=== PATIENT | female | born 1950 | race Caucasian/White ===

== ENCOUNTER 2017-03-23 15:39 | Inpatient (IN) | payer MEDICAID, MEDICARE ==
[~2017-03-23] VITALS: Ht 160 cm; Wt 73.5 kg
[2017-03-23 13:50] VITALS: BP 146/87
[2017-03-23] MEDS ORDERED: MAGNESIUM HYDROXIDE 30 ML UDC PO PRN (16:30)
[2017-03-23] MEDS ORDERED: ACETAMINOPHEN 325 MG TABLET PO PRN (16:30)
--- NOTE | 2017-03-23 16:35 | NUR ---
GPS RN ADMITTING NOTE: PT 66 Y/O FEMALE FROM [facility] PLACED ON 5150 FOR DANGER TO SELF PER HOLD PT ADMITTED [facility] FOR EVAL ON VOLUNTARY STATE FOR SYMPTOMS OF SCHIZOAFFECTIVE BIPOLAR TYPE. PT REFUSING MEDICATIONS INCLUDING BLOOD SUGAR CHECKS AND BP PT HAS UNREALISTIC PARANOID BELIEFS. PER F/F ASSESSMENT PT DELUSIONAL A/OX 3 WITH FORGETFULNESS, ANXIOUS HAS TWO RESENT FALLS NOTED MULTIPLE BRUISES AND LEFT HEAD LACERATION WITH STITCHES PLACED, PATIENT DENIES SUICIDAL AND HOMICIDAL IDEATION DENIES PAIN AT THIS TIME ,DR NULL NOTIFIED WITH ORDERS WILL INDORSE TO INCOMING NURSE FOR COMPLETION AND CONTINUATION OF ADMISSION
[2017-03-23] MEDS ORDERED: LORA1TAB PO (17:19)
[2017-03-23] MEDS ORDERED: OLAN20TA3 PO (17:19)
[2017-03-23] MEDS ORDERED: IBUP-1481 PO (17:19)
[2017-03-23] MEDS ORDERED: NAPR250T2 PO (17:19)
[2017-03-23] MEDS ORDERED: ACET325T53 PO (17:19)
[2017-03-23] MEDS ORDERED: GLIM2TAB2 PO (17:19)
[2017-03-23] MEDS ORDERED: NICO1PAT44 TD (17:19)
[2017-03-23] MEDS ORDERED: NICO2GUM9 BC (17:19)
[2017-03-23] MEDS ORDERED: INSU100I4 SQ (17:19)
[2017-03-23] MEDS ORDERED: MAG30ORA PO (17:19)
[2017-03-23] MEDS ORDERED: HYDR-3026 PO (17:19)
[2017-03-23] MEDS ORDERED: FLUV50TA3 PO (17:19)
[2017-03-23] MEDS ORDERED: INSU100V10 SQ (17:19)
--- NOTE | 2017-03-23 18:15 | NUR ---
GPS RN NOTE: DR CASTANEDA NOTIFIED OF NEW ADMISSION TO [facility] MEDICATION PT HAS HX DM AND RESENT FALL WITH LACERATION ON THE LEFT SIDE HEAD WITH STITCHES NEED TO BE REMOVED ON MARCH 26 WILL CONTINUE MONITORING FOR SAFETY AND BEHAVIOR Q 15 MIN
--- NOTE | 2017-03-23 18:43 | NUR ---
GPS RN NOTE: PAT HAD RESENT FALL 1:1 SITTER ORDER FOR SAFETY
--- NOTE | 2017-03-23 19:30 | NUR ---
GPS RN NOTE, RECEIVED PATIENT AWAKE AND IN BED, NO S/S OR COMPLAINTS OF PAIN AT THIS TIME. PATIENT IS DISPLAYING NO S/S OF APPARENT DISTRESS AT THIS TIME. PATIENT BREATHING IS UNLABORED WITH EQUAL RISE AND FALL OF THE CHEST. PATIENT HAS A 1TO 1 SITTER FOR FALLING AT HER ORIGINAL FACILITY. PATIENT IS ALERT AND ORIENTED X 1 ON ROOM AIR WITH A SPO2 98%. PATIENT COMPLIANT WITH MEDICATIONS, DEPRESSED, COOPERATIVE, CALM, CONFUSED AT TIMES, AND NEEDS REORIENTATION. PATIENT DENIES SUICIDE AND HOMICIDAL IDEATIONS AT THIS TIME. PATIENT ASSISTED WITH TURNING AND REPOSITIONING Q2HR AND PRN FOR COMFORT AND CIRCULATION. PATIENT HAS NO NEEDS AT THIS TIME. PATIENT EDUCATED ON THE USE OF THE CALL OLIVER. PATIENT BED SIDE RAILS UP X2 FOR SAFETY, BED IS LOCKED AND LOW WILL CONTINUE TO MONITOR AND MAINTAIN SAFETY.
--- NOTE | 2017-03-23 19:43 | NUR ---
GPS RN NOTE, PERFORMED ACCU CHECK ON PATIENT WITH A BLOOD SUGAR RESULT OF 316. GAVE 8 UNITS OF REGULAR INSULIN PER SLIDING SCALE. ALSO GAVE A TUNA SANDWICH FOR SNACK. WILL CONTINUE TO MONITOR THIS PATIENT.
[2017-03-23 19:52] VITALS: BP 149/93
[2017-03-23] MEDS ORDERED: DEXTROSE 50%-WATER 50 ML DISP.SYRIN IV PRN ×2 (20:00→20:30)
[2017-03-23] MEDS ORDERED: *INSULIN REGULAR(HUMULIN R)HUM 100 UNIT/ML VIAL SQ PRN (20:00)
[2017-03-23] MEDS ORDERED: INSULIN REGULAR, HUMAN 100 UNIT/ML 3 ML VIAL SQ PRN (20:00)
[2017-03-23] MEDS ORDERED: MAG HYDROX/AL HYDROX/SIMETH 30 ML UDC PO PRN (20:30)
[2017-03-23] MEDS: BLOOD SUGAR DIAGNOSTIC 1 EACH STRIP IN SCH (21:25)
[2017-03-23] MEDS: INSULIN REGULAR, HUMAN 100 UNIT/ML 3 ML VIAL SQ PRN (21:27)
[2017-03-23] MEDS: TEMAZEPAM 7.5 MG CAPSULE PO PRN (21:33)
--- NOTE | 2017-03-23 21:33 | NUR ---
GPS RN NOTE, PATIENT HAS A COMPLAINT OF NOT BEING ABLE TO SLEEP AND WOULD LIKE A SLEEPING AID AT THIS TIME. PATIENT VITAL SIGNS ARE STABLE. GAVE RESTORIL 7.5MG PO HS ORDERED. WILL REASSESS FOR INSOMNIA AND I WILL CONTINUE TO MONITOR THIS PATIENT.
[2017-03-23] MEDS ORDERED: BLOOD SUGAR DIAGNOSTIC 1 EACH STRIP IN SCH (22:00)
[2017-03-24] VITALS (8 sets, daily range): BP systolic 136–166; BP diastolic 75–97
[2017-03-24 06:39] LABS: BASOPHILS % (AUTO) 0.4 % (0.0-2.0); EOSINOPHILS # (AUTO) 0.2 /CMM (0.0-0.7); EOSINOPHILS % (AUTO) 2.1 % (0.0-6.0); HEMATOCRIT 37 % (33-45); HEMOGLOBIN 12.2 g/dL (11.5-14.8); LYMPHOCYTES # (AUTO) 2.8 /CMM (0.8-4.8); LYMPHOCYTES % (AUTO) 34.3 % (20.0-44.0); MEAN CORPUSCULAR HEMOGLOBIN 30 PG (26.0-33.0); MEAN CORPUSCULAR HGB CONC 33 g/dl (31.0-36.0); MEAN CORPUSCULAR VOLUME 88 fL (82-100); MONOCYTES # (AUTO) 0.6 /CMM (0.1-1.30); MONOCYTES % (AUTO) 7.4 % (2.0-12.0); NEUTROPHILS # (AUTO) 4.5 /CMM (1.8-8.9); NEUTROPHILS % (AUTO) 55.8 % (43.0-81.0); PLATELET COUNT (AUTO) 335 /CMM (150-450); RDW COEFFICIENT OF VARIATION 15.1 (11.5-15.0); RED BLOOD CELL COUNT(AUTO) 4.13 MIL/uL (4.0-5.2); WHITE BLOOD COUNT (AUTO) 8.1 K/uL (4.3-11.0)
[2017-03-24 06:55] LABS: ALBUMIN 3.5 g/dL (3.4-5.0); BILIRUBIN,TOTAL 0.3 mg/dL (0.2-1.0); CALCIUM, SERUM 9.3 mg/dL (8.5-10.1); CREATININE 0.6 mg/dL (0.6-1.3); MAGNESIUM 2.1 mg/dL (1.8-2.4); PHOSPHORUS 4.2 mg/dL (2.5-4.9)
[2017-03-24 07:03] LABS: THYROID STIMULATING HORMONE 2.917 uIU/mL (0.358-3.74)
[2017-03-24 07:32] LABS: BILIRUBIN,DIRECT 0.1 mg/dL (0.0-0.2)
[2017-03-24] MEDS: BLOOD SUGAR DIAGNOSTIC 1 EACH STRIP IN SCH ×4 (07:53→21:30)
[2017-03-24] MEDS: INSULIN REGULAR, HUMAN 100 UNIT/ML 3 ML VIAL SQ PRN ×4 (07:54→21:32)
[2017-03-24] MEDS: NICOTINE PATCH (21MG) 21 MG PATCH.TD24 TD SCH (09:00)
--- NOTE | 2017-03-24 11:18 | NUR ---
WOUND CARE CONSULT PATIENT SEEN AND SKIN INTEGRITY ASSESSMENT DONE. SEE SPINNING LATHE OPERATOR HYDRAULIC ASSESSMENT IN [facility]CS FOR TODAY. PER NURSING CARLOS TO THE LEFT SCALP LACERATION TO BE REMOVED ON . WOUND CARE WILL DEFER THIS TO PRIMARY MD. PER PATIENT'S SISTER PATIENT FELL ABOUT 8-9 DAYS AGO. PATIENT WITH GRACIE AT 19, PATIENT AMBULATORY WITH WALKER AT THIS TIME AND ABLE TO MOVE INDEPENDENTLY WHILE IN BED. UP IN CHAIR AT BEDSIDE AT THIS TIME. Addendum: 03/24/17 at 1126 by ALONZO MCGOWAN WNDNU Amended: Links added.
--- NOTE | 2017-03-24 13:00 | NUR ---
1225 PT. WAS UNRESPONSIVE ON HER ROOM. V/S TAKEN : BP 164/90, NV 128 AND OXYGEN SAT 94%. 1225 [facility] CALLED AND THEY ARRIVED AT 1227, V/S TAKEN: 166/96, RR 133 AND OXYGEN SAT 98%, BS 272 1235 PT. STARTED TO OBEY COMMANDS, OPENING HER EYES AND OPENING HER MOUTH. V/S TAKEN: 164/89, NV 133, OXYGEN SAT 98% . [address] PALM AND ORDERED CT OF HEAD WITHOUT CONTRAST, BMP, CBC, PHOSPHOROUS, MAGNESIUM AND EKG. 1300 EDMUND TORRES WAS NOTIFIED ABOUT THE INCIDENT Addendum: 03/24/17 at 1824 by TERRIE MAST RN [place] WAS NOTIFIED BY THE CHARGE NURSE ABOUT THE INCIDENT.
[2017-03-24 13:17] LABS: BASOPHILS % (AUTO) 0.4 % (0.0-2.0); EOSINOPHILS # (AUTO) 0.1 /CMM (0.0-0.7); EOSINOPHILS % (AUTO) 1.2 % (0.0-6.0); HEMATOCRIT 37 % (33-45); HEMOGLOBIN 12.3 g/dL (11.5-14.8); LYMPHOCYTES # (AUTO) 2.2 /CMM (0.8-4.8); LYMPHOCYTES % (AUTO) 23.2 % (20.0-44.0); MEAN CORPUSCULAR HEMOGLOBIN 29 PG (26.0-33.0); MEAN CORPUSCULAR HGB CONC 33 g/dl (31.0-36.0); MEAN CORPUSCULAR VOLUME 89 fL (82-100); MONOCYTES # (AUTO) 0.6 /CMM (0.1-1.30); MONOCYTES % (AUTO) 6.2 % (2.0-12.0); NEUTROPHILS # (AUTO) 6.6 /CMM (1.8-8.9); PLATELET COUNT (AUTO) 319 /CMM (150-450); RDW COEFFICIENT OF VARIATION 14.7 (11.5-15.0); RED BLOOD CELL COUNT(AUTO) 4.23 MIL/uL (4.0-5.2); WHITE BLOOD COUNT (AUTO) 9.5 K/uL (4.3-11.0)
[2017-03-24 13:35] LABS: CALCIUM, SERUM 9.2 mg/dL (8.5-10.1); CREATININE 0.6 mg/dL (0.6-1.3); MAGNESIUM 2.1 mg/dL (1.8-2.4); PHOSPHORUS 3.4 mg/dL (2.5-4.9); POTASSIUM 4.1 mmol/L (3.5-5.1)
--- NOTE | 2017-03-24 16:21 | NUR ---
DR. PALM NOTIFIED ABOUT THE RESULT OF THE CT OF HEAD RESULT AND EKG RESULT AND ORDERED NEUROLOGY CONSULT WITH DR. PERALES.
--- NOTE | 2017-03-24 16:26 | NUR ---
CALLED THE OFFICE OF DR. PERALES AND LEFT A MESSAGE FOR THE NEUROLOGY CONSULT.
--- NOTE | 2017-03-24 17:56 | NUR ---
DR. PALM CAME IN THE UNIT AND EXAMINED PT.
--- NOTE | 2017-03-24 20:00 | NUR ---
GPS RN NOTES PATIENTS BLOOD PRESSURE = 157/97, HR = 139. CALL MADE TO [facility]. WAS ABLE TO TALK TO DR. WHEELER, NOTIFIED MD OF PATIENTS LATEST VITAL SIGNS AND OF EARLIER EPISODE OF UNRESPONSIVENESS WHICH LEAD TO A CALL FOR [facility]. ALSO READ CT SCAN RESULT TO .
[2017-03-24] MEDS: LORAZEPAM 0.5 MG TABLET PO PRN (20:19)
[2017-03-24] MEDS: FLUVOXAMINE MALEATE 50 MG TABLET PO SCH (21:06)
[2017-03-24] MEDS: OLANZAPINE 10 MG TABLET PO SCH (21:06)
[2017-03-24] MEDS: TEMAZEPAM 7.5 MG CAPSULE PO PRN (22:21)
[2017-03-25] MEDS: NAPROXEN 250 MG TABLET PO PRN (03:17)
[2017-03-25 08:00] VITALS: BP 140/85
[2017-03-25] MEDS: BLOOD SUGAR DIAGNOSTIC 1 EACH STRIP IN SCH ×4 (08:51→21:46)
[2017-03-25] MEDS: INSULIN REGULAR, HUMAN 100 UNIT/ML 3 ML VIAL SQ PRN ×4 (08:54→22:00)
[2017-03-25] MEDS: NICOTINE PATCH (21MG) 21 MG PATCH.TD24 TD SCH (09:00)
--- NOTE | 2017-03-25 13:06 | NUR ---
Initial Discharge Plan: Patient lives at home with her [address] [place] [id number]. . wireworker supervisor, spoke to patient's ([phone]) who confirmed patient can return home and will pick her up when she is ready for discharge. wireworker supervisor will help form a safe and proper discharge.
--- NOTE | 2017-03-25 13:56 | NUR ---
GPS/RN NO ADDITION COVERAGE PER LINDSEY ROUGHER MACHINE OPERATOR NEEDED. NEW ORDERS RECEIVED AND CARRIED OUT.
--- NOTE | 2017-03-25 15:43 | NUR ---
Psychosocial assessment was reviewed and I concur with the information provided. No changes are necessary. Willam Ortega, [facility] [id number] Addendum: 03/25/17 at 1543 by WILLAM ORTEGA SW Amended: Links added.
[2017-03-25 16:00] VITALS: BP 138/94
--- NOTE | 2017-03-25 17:41 | NUR ---
GPS/RN PT REFUSED INSULIN. STATES " I NEVER HAD INSULIN BEFORE..."
[2017-03-25 20:00] VITALS: BP 142/88
[2017-03-25] MEDS: OLANZAPINE 10 MG TABLET PO SCH (21:07)
[2017-03-25] MEDS: FLUVOXAMINE MALEATE 50 MG TABLET PO SCH (21:07)
[2017-03-25] MEDS: INSULIN DETEMIR 100 UNIT/ML CARTRIDGE SQ SCH (21:59)
[2017-03-25] MEDS: TEMAZEPAM 7.5 MG CAPSULE PO PRN (22:03)
[2017-03-26 08:04] VITALS: BP 145/80
[2017-03-26] MEDS: BLOOD SUGAR DIAGNOSTIC 1 EACH STRIP IN SCH ×4 (08:21→22:16)
[2017-03-26] MEDS: INSULIN REGULAR, HUMAN 100 UNIT/ML 3 ML VIAL SQ PRN ×4 (08:23→22:22)
[2017-03-26] MEDS: LORAZEPAM 0.5 MG TABLET PO PRN (08:42)
[2017-03-26 16:00] VITALS: BP 120/70
--- NOTE | 2017-03-26 16:11 | NUR ---
GPS/SENIOR SUSTAINABILITY CONSULTANT CARLOS REMOVED NO BLEEDING OR INFLAMMATION NOTED. NO C/O PAIN REPORTED.
[2017-03-26 19:59] VITALS: BP 116/68
[2017-03-26] MEDS: FLUVOXAMINE MALEATE 50 MG TABLET PO SCH (21:12)
[2017-03-26] MEDS: OLANZAPINE 10 MG TABLET PO SCH (21:13)
[2017-03-26] MEDS: TEMAZEPAM 7.5 MG CAPSULE PO PRN (22:04)
[2017-03-26] MEDS: INSULIN DETEMIR 100 UNIT/ML CARTRIDGE SQ SCH (22:20)
[2017-03-27] MEDS: MAG HYDROX/AL HYDROX/SIMETH 30 ML UDC PO PRN ×2 (06:32→10:19)
[2017-03-27 08:00] VITALS: BP 154/76
[2017-03-27] MEDS: BLOOD SUGAR DIAGNOSTIC 1 EACH STRIP IN SCH ×4 (08:13→21:47)
[2017-03-27] MEDS: GLIMEPIRIDE 1 MG TABLET PO SCH (08:27)
[2017-03-27] MEDS: INSULIN REGULAR, HUMAN 100 UNIT/ML 3 ML VIAL SQ PRN ×4 (08:30→21:50)
--- NOTE | 2017-03-27 10:20 | NUR ---
ADMINISTERED MAALOX 30 MG PO PRN STOMACHACHE, CONTINUED MONITORING.
[2017-03-27 17:33] LABS: APPEARANCE,URINE CLEAR (CLEAR); BILIRUBIN,URINE NEGATIVE (NEGATIVE); BLOOD, URINE NEGATIVE Ery/uL (NEGATIVE); COLOR,URINE YELLOW (YELLOW); KETONES,URINE 1+ (NEGATIVE); LEUKOCYTE ESTERASE ,URINE TRACE (NEGATIVE); NITRITE, URINE NEGATIVE (NEGATIVE); PROTEIN,URINE NEGATIVE (NEGATIVE); UGLUCOSE NEGATIVE (NEGATIVE); UROBILINOGEN,URINE 0.2 EU/dL (0.2)
[2017-03-27 19:18] LABS: BACTERIA,URINE Rare /HPF (None Seen); RBC,URINE 0-3 /HPF (0-2); SQUAMOUS EPITHELIAL CELL,UR Few /HPF (None Seen)
[2017-03-27 20:10] VITALS: BP 139/84
[2017-03-27] MEDS: FLUVOXAMINE MALEATE 50 MG TABLET PO SCH (21:24)
[2017-03-27] MEDS: OLANZAPINE 10 MG TABLET PO SCH (21:25)
[2017-03-27] MEDS: INSULIN DETEMIR 100 UNIT/ML CARTRIDGE SQ SCH (21:52)
[2017-03-28] MEDS: BLOOD SUGAR DIAGNOSTIC 1 EACH STRIP IN SCH ×4 (07:44→22:07)
[2017-03-28 08:00] VITALS: BP 147/74
[2017-03-28] MEDS: LORAZEPAM 0.5 MG TABLET PO PRN (08:25)
[2017-03-28] MEDS: GLIMEPIRIDE 1 MG TABLET PO SCH (08:25)
[2017-03-28] MEDS: INSULIN REGULAR, HUMAN 100 UNIT/ML 3 ML VIAL SQ PRN ×4 (08:27→21:40)
[2017-03-28 16:25] VITALS: BP 123/67
[2017-03-28 20:00] VITALS: BP 125/75
[2017-03-28] MEDS: FLUVOXAMINE MALEATE 50 MG TABLET PO SCH (21:36)
[2017-03-28] MEDS: OLANZAPINE 10 MG TABLET PO SCH (21:36)
[2017-03-28] MEDS: INSULIN DETEMIR 100 UNIT/ML CARTRIDGE SQ SCH (21:41)
[2017-03-29] MEDS: BLOOD SUGAR DIAGNOSTIC 1 EACH STRIP IN SCH ×4 (07:49→21:49)
[2017-03-29] MEDS: INSULIN REGULAR, HUMAN 100 UNIT/ML 3 ML VIAL SQ PRN ×4 (07:51→21:58)
[2017-03-29] MEDS: GLIMEPIRIDE 1 MG TABLET PO SCH (08:12)
[2017-03-29 08:24] VITALS: BP 137/84
[2017-03-29] MEDS: NAPROXEN 250 MG TABLET PO PRN (09:42)
[2017-03-29 16:00] VITALS: BP 115/63
--- NOTE | 2017-03-29 19:26 | NUR ---
GPS/RN NOTE: AWAKE, RESTING IN BED, COMFORTABLE. NO ACUTE DISTRESS NOTED. RESPONDS WHEN ENGAGED.
[2017-03-29 20:13] VITALS: BP 153/87
[2017-03-29] MEDS: OLANZAPINE 10 MG TABLET PO SCH (21:49)
[2017-03-29] MEDS: FLUVOXAMINE MALEATE 50 MG TABLET PO SCH (21:49)
[2017-03-29] MEDS: INSULIN DETEMIR 100 UNIT/ML CARTRIDGE SQ SCH (22:01)
--- NOTE | 2017-03-29 22:01 | NUR ---
gps/rn note: accucheck 207 mg/dl, 4 units reg insulin sliding scale sc administered. hs snack given.
[2017-03-29] MEDS: TEMAZEPAM 7.5 MG CAPSULE PO PRN (23:47)
--- NOTE | 2017-03-29 23:48 | NUR ---
GPS/RN NOTE: pATIENT REQUESTED FOR SLEEPING PILL, C/O INSOMNIA, TEMAZEPAM 7.5 MG CAP 1 PO GIVEN.
[2017-03-30] MEDS: BLOOD SUGAR DIAGNOSTIC 1 EACH STRIP IN SCH ×4 (07:18→22:04)
[2017-03-30] MEDS: INSULIN REGULAR, HUMAN 100 UNIT/ML 3 ML VIAL SQ PRN ×4 (07:52→21:56)
[2017-03-30] MEDS: GLIMEPIRIDE 1 MG TABLET PO SCH (07:53)
[2017-03-30 08:00] VITALS: BP 150/80
[2017-03-30 16:00] VITALS: BP 128/80
[2017-03-30] MEDS: OLANZAPINE 10 MG TABLET PO SCH (21:24)
[2017-03-30] MEDS: FLUVOXAMINE MALEATE 50 MG TABLET PO SCH (21:24)
[2017-03-30] MEDS: INSULIN DETEMIR 100 UNIT/ML CARTRIDGE SQ SCH (21:59)
[2017-03-30 22:27] VITALS: BP 162/89
[2017-03-31 08:13] VITALS: BP 114/75
[2017-03-31] MEDS: GLIMEPIRIDE 1 MG TABLET PO SCH (09:01)
[2017-03-31] MEDS: BLOOD SUGAR DIAGNOSTIC 1 EACH STRIP IN SCH ×4 (09:01→21:20)
[2017-03-31] MEDS: INSULIN REGULAR, HUMAN 100 UNIT/ML 3 ML VIAL SQ PRN ×3 (12:19→21:32)
[2017-03-31 16:32] VITALS: BP 127/80
[2017-03-31 20:00] VITALS: BP 138/87
[2017-03-31] MEDS: FLUVOXAMINE MALEATE 50 MG TABLET PO SCH (21:06)
[2017-03-31] MEDS: OLANZAPINE 10 MG TABLET PO SCH (21:07)
[2017-03-31] MEDS: INSULIN DETEMIR 100 UNIT/ML CARTRIDGE SQ SCH (21:35)
[2017-04-01 08:00] VITALS: BP 134/80
[2017-04-01] MEDS: BLOOD SUGAR DIAGNOSTIC 1 EACH STRIP IN SCH ×2 (08:27→12:44)
[2017-04-01] MEDS: GLIMEPIRIDE 1 MG TABLET PO SCH (08:27)
[2017-04-01] MEDS: INSULIN REGULAR, HUMAN 100 UNIT/ML 3 ML VIAL SQ PRN ×2 (08:33→12:45)
--- NOTE | 2017-04-01 11:04 | NUR ---
PT. WITH AN ORDER TO D/C HOLD AND D/C HOME. WITHOUT DISTRESS, DENIES SUICIDAL AND HOMICIDAL. TO FOLLOW UP WITH PSYCH AND MEDICAL DOCTORS.
--- NOTE | 2017-04-01 13:00 | NUR ---
GPS/RN PT. D/C HOME. WITHOUT DISTRESS, DENIES SUICIDAL AND HOMICIDAL. PRESCRIPTIONS GIVEN AND UNDERSTOOD. REFUSED PICTURES AND TO SIGN EXIT CARE ON D/C. LEFT WITH HER ENEDINA VIA PRIVATE CAR.
--- NOTE | 2017-04-01 16:44 | NUR ---
Discharge Note: Patient was discharged back home [address] [place] [address]. . Patients Steve Chinchilla was notified and hand picker the patient at 1:00 pm via private vehicle. Patient and patient's were agreeable with the discharge plan. Patient was calm and her mood and affect were appropriate upon discharge. Patient denied suicidal and homicidal ideations. Patient and patient's agreed to follow up with patient's psychiatrist Dr. Farhat Auguste ([phone]) within 30 days. Facilitated info to IDT team who are in agreement with discharge arrangement. The multidisciplinary exitcare form was done, printed, signed, and given to the patient.
== END 2017-04-01 13:00 | disposition home or self-care (01) | DRG 885 ==
LOC: GPS 15:39
PROVIDERS: ADMIT Psychiatry & Neurology Psychiatry; ATTEND Internal Medicine
DX: F25.9 Schizoaffective disorder, unspecified (principal); E11.65 Type 2 diabetes mellitus with hyperglycemia; I62.03 Nontraumatic chronic subdural hemorrhage; N39.0 Urinary tract infection, site not specified; F29 Unspecified psychosis not due to a substance or known physiological condition; Z73.6 Limitation of activities due to disability; I10 Essential (primary) hypertension
CPT/HCPCS: 36415; 70450-TC; 80048-TC; 80053-TC; 80076-TC; 81000-TC; 82746; 82962-TC; 83540-TC; 83735-TC; 84100-TC; 84443-TC; 85025-TC; 87081-TC; 87086-TC; A6402; J1815; Z7610